=== PATIENT | female | born 2000 | race Caucasian/White ===

== ENCOUNTER → 2018-07-06 20:30 | Observation (INO) ==
[2018-07-06 18:19] LABS: Bilirubin,Urine Small (Negative); Blood,Urine Negative (Negative); Clarity,Urine Cloudy (Clear); Color,Urine Orange (Yellow); Glucose,Urine (UA) Normal (Normal); Ketones,Urine Trace mg/dL (Negative); Leukocyte Esterase,Urine Small (Negative); Nitrite,Urine Positive (Negative); PH,Urine 7.5 pH Units (5.0-8.0); Protein,Urine 30 mg/dL (Neg-Trace); Specific Gravity,Urine 1.023 (1.010-1.025); Urobilinogen,Urine Normal (Normal)
[2018-07-06 18:20] LABS: Bacteria,Urine Moderate per hpf (None-Few); RBC,Urine 0-3 per hpf (0-3); Squamous Epithelial Cell,Urine Many per lpf (None-Few); WBC,Urine 30-50 per hpf (0-3)
[2018-07-06 18:29] LABS: Amphetamine Screen,Urine Negative ng/mL (Cutoff=1000); Barbiturate Screen,Urine Negative ng/mL (Cutoff=200); Benzodiazepines Screen,Urine Negative ng/mL (Cutoff=200); Cannabinoid Screen,Urine Negative ng/mL (Cutoff = 50); Cocaine Screen,Urine Negative ng/mL (Cutoff= 300); Opiate Screen,Urine Negative ng/mL (Cutoff=300); Phencyclidine Screen,Urine Negative ng/mL (Cutoff=25)
--- NOTE | 2018-07-06 18:35 | OB/GYN Progress Note ---
Date of Encounter: 07/06/18 Time of Encounter: 18:34 Subjective - Subjective Interval history: 17 y/o @ 31+3 weeks presented to L&D reporting that she felt like passing out at work today. She does not report LOF or VB but reports back pain. NST reactive UA showed possible UTI PE elicited mild CVA tenderness Patient given Ceftriaxone 1g and sent home with PO Keflex ok for discharge Objective - Vital Signs Vital Signs: Intake and Output 07/06/18 07/06/18 07/06/18 07:59 15:59 23:59 Other: Weight 86.8 kg Patient Weight 07/06/18 23:59 Weight 86.8 kg - Labs Labs: Abnormal lab results Urine Color [place] (Yellow) A 07/06/18 18:00 Urine Clarity Cloudy (Clear) A 07/06/18 18:00 Urine Protein 30 mg/dL (Neg-Trace) H 07/06/18 18:00 Urine Ketones Trace mg/dL (Negative) H 07/06/18 18:00 Urine Nitrite Positive (Negative) A 07/06/18 18:00 Urine Bilirubin Small (Negative) H 07/06/18 18:00 Ur Leukocyte Esterase Small (Negative) H 07/06/18 18:00
[2018-07-06 18:48] LABS: Basophils % 0.2 %; Eosinophils # 0.1 K/mcL (0.0-0.6); Eosinophils % 0.5 %; Hematocrit 32.7 % (35.3-44.9); Hemoglobin 11.2 g/dL (11.5-15.4); Immature Granulocytes % 1.1 % (0-4); Lymphocytes # 0.8 K/mcL (0.6-4.6); Lymphocytes % 4.8 %; Mean Corpuscular HGB Conc 34.3 g/dL (31.6-35.5); Mean Corpuscular Hemoglobin 29.8 pg (28.0-33.3); Monocytes # 0.8 K/mcL (0.0-1.3); Monocytes % 4.6 %; Neutrophils # 15.1 K/mcL (1.6-8.9); Platelet Count 257 K/mcL (140-400); Red Blood Count 3.76 M/mcL (3.82-4.97); Red Cell Distribution Width 12.7 % (11.5-14.5); Segmented Neutrophils % 88.8 %
[2018-07-06 18:58] LABS: Calcium Phosphate Crystals,Ur Present; Hyaline Casts,Urine Few per lpf (None-Few); Mucus,Urine Many (Few); Renal Epithelial Cells,Urine Few per hpf (None-Few)
[2018-07-06 18:59] LABS: Oval Fat Bodies,Urine Present (Not Present); Triple Phosphate Crystal,Urine Present
[~2018-07-06 20:30] MED LIST: CefTRIAXone 1,000 MG VIAL IM ONE; Ringers Solution, Lactated 1,000 ML ONE; Ringers Solution, Lactated 500 ML IVC ONE; Ringers Solution, Lactated 500 ML IVC SCH
== END | disposition home or self-care (01) ==
LOC: 1NENULAB
PROVIDERS: ADMIT Advanced Practice Midwife; ATTEND Advanced Practice Midwife

== ENCOUNTER 2018-08-29 04:00 | Inpatient (IN) ==
[2018-08-29] MEDS ORDERED: *HR* Nalbuphine 10 MG/ML AMPUL IVP PRN (04:07)
[2018-08-29] MEDS ORDERED: Naloxone 0.4 MG/ML INJ IVP PRN ×2 (04:07→14:45)
[2018-08-29] MEDS ORDERED: Metoclopramide 10 MG/2 ML VIAL IVP PRN (04:07)
[2018-08-29] MEDS ORDERED: Famotidine 20 MG/2 ML VIAL IVP PRN (04:07)
[2018-08-29] MEDS ORDERED: miSOPROStol 25 MCG TABLET VG PRN (04:07)
[2018-08-29] MEDS ORDERED: Ringers Solution, Lactated 1,000 ML IVC SCH (04:15)
[2018-08-29 04:55] LABS: Basophils % 0.3 %; Eosinophils # 0.1 K/mcL (0.0-0.6); Eosinophils % 1.1 %; Hematocrit 31.7 % (35.3-44.9); Hemoglobin 10.7 g/dL (11.5-15.4); Immature Granulocytes % 1.7 % (0-4); Lymphocytes # 1.9 K/mcL (0.6-4.6); Lymphocytes % 16.3 %; Mean Corpuscular HGB Conc 33.8 g/dL (31.6-35.5); Mean Platelet Volume 9.4 fL (9.4-12.4); Monocytes # 0.7 K/mcL (0.0-1.3); Monocytes % 5.6 %; Neutrophils # 8.9 K/mcL (1.6-8.9); Platelet Count 285 K/mcL (140-400); Red Blood Count 3.82 M/mcL (3.82-4.97); Red Cell Distribution Width 13.4 % (11.5-14.5)
[2018-08-29 05:00] LABS: Amphetamine Screen,Urine Negative ng/mL (Cutoff=1000); Barbiturate Screen,Urine Negative ng/mL (Cutoff=200); Benzodiazepines Screen,Urine Negative ng/mL (Cutoff=200); Cannabinoid Screen,Urine Negative ng/mL (Cutoff = 50); Cocaine Screen,Urine Negative ng/mL (Cutoff= 300); Opiate Screen,Urine Negative ng/mL (Cutoff=300); Phencyclidine Screen,Urine Negative ng/mL (Cutoff=25)
[2018-08-29] MEDS: Ondansetron 4 MG/2 ML VIAL IVP PRN ×2 (05:11→20:09)
--- NOTE | 2018-08-29 05:34 | OB Labor Progress Note ---
Date of Encounter: 08/29/18 Time of Encounter: 05:32 Labor Progress Note - Subjective Subjective: Pt reports feeling contractions but states they are tolerable. - Cervix Cervix: 1/50/-2 - Heart Tones Heart Tones: FHR category I Accels 15x15 No decels - [place]: Contractions every 3-4 minutes - Interventions Interventions: SVE Rogers balloon placed and inflated with 60cc sterile water - Plan Physician notified: No Plan: Continue induction as planned per Dr. Avila Frequent position changes Anticipate
--- NOTE | 2018-08-29 06:03 | Anesthesia Evaluation PreOp ---
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 History: Denies Any Significant HX Other Medical History: Denies Any Significant HX Anesthesia History: No Prior Anesthetic Complications, Past Anesthesia (no family hx.) Alcohol Use: none Drug use: none Medications and Allergies Vit/Iron Fumarate/FA [ Tablet] 1 each PO DAILY #90 tablet 07/03/17 [Rx] Famotidine [Pepcid] 20 mg PO DAILY 07/06/18 [History] Allergy/AdvReac Type Severity Reaction Status Date / Time No Known Allergies Allergy Verified 07/02/18 09:41 Anesthesia Results - Labs 08/29/18 04:20 Anesthesia Exam - HEENT Pupil (Motor): Pupils equal Mallampati: II Teeth: Normal Oral Opening: Greater than 3 - CRUSHER SCREEN REPAIRER LOC: Oriented CRUSHER SCREEN REPAIRER Motor: Normal RUE, Normal LUE, Normal RLE, Normal LLE, Normal Face CRUSHER SCREEN REPAIRER Sensory: Normal: RUE, LUE, RLE, LLE, Face - Cardiac Rhythm: Regular Murmur: None - Pulmonary Breath Sounds: bilateral Clear Respiratory Effort: Symmetrical Anesthesia Assess/Plan ASA Score: 2 Level of consciousness: Cooperative, Oriented Monitoring Plan: Standard Monitors Recovery Plan: PACU
[2018-08-29] MEDS ORDERED: EPHEDrine 50 MG/ML VIAL IVP PRN ×2 (06:06→14:45)
[2018-08-29] MEDS ORDERED: Epidural Premix (fent/bupiv) 110 ML EP SCH ×2 (06:15→14:45)
[2018-08-29] MEDS ORDERED: *HR* FentaNYL (PF) 100 MCG/2 ML VIAL EP ONE (14:45)
[2018-08-29] MEDS ORDERED: *HR* Ropivacaine/PF 0.2% 20 ML VIAL EP ONE (14:45)
[2018-08-29] MEDS ORDERED: Ondansetron 4 MG/2 ML VIAL IVP PRN (14:45)
[2018-08-29] MEDS ORDERED: *HR* FentaNYL (PF) 100 MCG/2 ML VIAL ONE (14:50)
[2018-08-29] MEDS ORDERED: Lidocaine -MPF 1% 5 ML AMPUL ONE (14:51)
[2018-08-29] MEDS ORDERED: *HR* Ropivacaine/PF 0.2% 20 ML VIAL ONE (14:51)
--- NOTE | 2018-08-29 15:34 | Anesthesia Procedures ---
Addendum entered and electronically signed by Vitaly Casarez CRNA 08/30/18 01:46: Delivery date: 08/30/18 Deivery time: 0140 Original Note: Date of Encounter: 08/29/18 Time of Encounter: 15:00 Procedures: Anesthesia - Epidural/Spinal Patient ID/Chart reviewed: Yes Patient examined: Yes OB Eval: Gestational age: 39 OB Eval: : 1 OB Eval: Hx Para: 0 OB Eval: Dilated at (cm): 5 OB Eval: Contractions: Non-stressed pattern Consent Obtained: Yes Supplemental Oxygen: None/Room Air Site Prep: Aseptic Technique, Sterile prep and drape, Povidone-Iodine 1% Patient position: upright Local Anesthetic: Lidocaine 1% Amount of Local Anesthetic used: 3 Touhy Needle Gauge: 18 Touhy Needle Depth (cm): 5 Catheter Depth at Skin (cm): 15 Test Dose (1.5% Lido + Epi): Volume given (mls): 3 Test Dose Result: Negative Loading Dose: Fentanyl (mcg): 100 Loading Dose: Other: Ropivicaine 0.2% 8ml Loading Dose Administered: Thru Catheter Infusion Med: 0.125% Bupivacaine w/ 2 mcg/ml Fentanyl Infusion Rate (mls/hr): [address]: Tegaderm, Tape Interspace Used: L3-L4 Loss of Resistance (CANDELARIO): Yes Blood: No Procedure: ZACH placed 1st pass in upright position without any immediate noted complications. VSS and FHT stable throughout. Vitals + FHT's: 1500 BP 118/65 P 148 R 18 1524 98/53 P 136 R 16
[2018-08-29] MEDS ORDERED: Oxytocin 20 units/ LR 1000 mL 20 UNIT/1,000 ML BAG IVC SCH (16:30)
--- NOTE | 2018-08-29 17:44 | OB/GYN History & Physical ---
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 Hernández is a 17 year old female who presents for scheduled induction of labor at 39w1d. She is and had care with Dr. Sanchez. course has been uncomplicated. She is varicella and rubella nonimmune. She admits to good movement and contractions. She denies vaginal bleeding or spontaneous rupture of membranes. She denies nausea, vomiting, fever, chills, dizziness, vision changes, chest pain, shortness of breath, RUQ pain, dysuria or calf pain. She has a past medical history of anxiety, depression and previous spontaneous in 2017. She has NKDA. 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 Past Med Surg Social Fam HX - Past Medical History Source: patient Medical history: no medical history Psychiatric history: anxiety, depression - Past Surgical History Surgical History: non-contributory - Social History Smoking Status: Never smoker Smokeless Tobacco Status: No Alcohol use: none Drug use: none Occupational status: employed Current living situation: Home - Independent Activity Level: Independent ambulation Recent Out of Country Travel Within the Last 8 Weeks: No Exposure or Possible Exposure to Illness During Travel: No - Family History Father Family Member Ethnicity: Non- Living Status: Cause of : Complications from diabetes mellitus Hx Family Cardiac Disorders: No Hx Family Respiratory Disorders: No Hx Family Cancer: No Hx Family GI Disorders: No Hx Family Genitourinary Disorders: No Hx Family Endocrine Disorder: No Hx Family Musculoskeletal Disorders: No Hx Family Neuromuscular Disorders: No Hx Family Neurologic Disorders: No Hx Family HEENT Disorders: No Hx Family Autoimmune Disorders: No Hx Family Reproductive Disorders: No Hx Family Psychosocial Disorders: No Hx Family Medical Disorders: No Obstetrical History - Pregnancies : 2 Para: 0 Term: 0 : 0 Ab's: 1 Livin - History/Complications History/Complications: First resulted in spontaneous Medications and Allergies Vit/Iron Fumarate/FA [ Tablet] 1 each PO DAILY #90 tablet 07/03/17 [Rx] Famotidine [Pepcid] 20 mg PO DAILY 07/06/18 [History] Allergy/AdvReac Type Severity Reaction Status Date / Time No Known Allergies Allergy Verified 07/02/18 09:41 Review of System OB All systems PM: reviewed and no additional remarkable complaints except as stated Exam - Constitutional Constitutional: well developed, well nourished, no acute distress, average body habitus - HEENT HEENT: Normocephaly, Mucus Membranes Moist - Neck Neck exam: full ROM, supple, trachea midline - Lungs Respiratory exam: CTAB - Cardiovascular Cardiovascular exam: RRR, +S1, +S2 - Abdomen Abdomen: Present: bowel sounds normal, gravid, non tender - Extremities Extremities exam: normal capillary refill, pedal edema, radial pulses palpable and symmetrical Deep Tendon Reflex Grade: 2+ Normal - Vagina Vagina: Present: normal moisture - Cervix Dilation: 6 Effacement: 90 Station: -2 - Uterus Uterus exam: Present: normal size, normal contour Results Result Diagrams: 08/29/18 04:20 Abnormal lab results WBC 11.9 K/mcL (4.3-11.1) H 08/29/18 04:20 Hgb 10.7 g/dL (11.5-15.4) L 08/29/18 04:20 Hct 31.7 % (35.3-44.9) L 08/29/18 04:20 All other labs normal. - VTE Reasons for not Prescribing Prophylaxis: Treatment not Indicated - Low risk for VTE
[2018-08-29] MEDS ORDERED: Acetaminophen 325 MG TABLET PO PRN (19:56)
--- NOTE | 2018-08-30 | Anesthesia Progress Note ---
Date of Encounter: 08/29/18 Time of Encounter: 23:50 Anesthesia Note - Note Note: 08/29/18 23:56 Called to patient bedside with breakthrough pain with contractions. BP 88/50 P 135. Patient bolus limited due to low BP. Ropivicaine 0.2% 4ml administered. VSS
[2018-08-30] MEDS ORDERED: Ampicillin 2 GM in 0.9 % Sodium Chloride Mini Bag 100 ML IVPB ONE (00:01)
--- NOTE | 2018-08-30 02:11 | OB/GYN Procedure Note ---
Delivery - Delivery Date: 08/30/18 Provider: Preet Avila Intrapartum events: febrile- temp >100.3 Delivery induction: AROM, oxytocin, lopez Anesthesia: epidural Quantitated Blood Loss: 350 - Infant (s) Infant A Delivery Date: 08/30/18 Infant Delivery Time: 01:40 Presentation: vertex Position: SELVIN Gender: Female Viability: Viable Weight Gram: 3.035 kg at 1 minute: 8 at 5 mins: 9 Shoulder Dystocia: not encountered Specimens collected: cord blood Placenta: spontaneous Cord: 3 umbilical vessels - Repair Laceration Description: Periurethral - Complications Delivery complications: none - Disposition Mom disposition: stable in LDR [place] disposition: stable in LDR - Comments Comments: Pt is s/p of liveborn female without difficulty. Spontaneous delivery of normal placenta with 3 vc. Small rt periurethral tear repaired with 3-0 Vicryl. Mother and infant recovered in LDR>
[2018-08-30] MEDS ORDERED: Rho Immune Globulin 1,500 UNIT SYRINGE IM PRN (02:48)
[2018-08-30] MEDS ORDERED: Oxytocin 20 units/ LR 1000 mL 20 UNIT/1,000 ML BAG IVC SCH (02:48)
[2018-08-30] MEDS ORDERED: Acetaminophen 325 MG TABLET PO PRN (02:48)
[2018-08-30] MEDS ORDERED: Measles/Mumps/Rubella Vacc 0.5 ML VIAL SQ PRN (02:48)
[2018-08-30] MEDS ORDERED: Ampicillin 1,000 MG in 0.9 % Sodium Chloride Mini Bag 100 ML IVPB SCH (04:00)
[2018-08-30 06:09] LABS: Basophils % 0.2 %; Hematocrit 26.2 % (35.3-44.9); Immature Granulocytes % 0.6 % (0-4); Lymphocytes % 4.6 %; Mean Corpuscular HGB Conc 33.2 g/dL (31.6-35.5); Mean Corpuscular Hemoglobin 28.1 pg (28.0-33.3); Mean Corpuscular Volume 84.5 fL (83.0-100.0); Mean Platelet Volume 9.5 fL (9.4-12.4); Monocytes % 6.5 %; Neutrophils # 19.7 K/mcL (1.6-8.9); Platelet Count 224 K/mcL (140-400); Red Cell Distribution Width 13.7 % (11.5-14.5); Segmented Neutrophils % 88.1 %
[2018-08-30 06:21] LABS: Hemoglobin 8.7 g/dL (11.5-15.4); Monocytes # 1.5 K/mcL (0.0-1.3)
[2018-08-30] MEDS: Prenatal Vit/FA 1 EACH TABLET PO SCH (08:56)
[2018-08-30] MEDS: Ibuprofen 600 MG TABLET PO PRN ×3 (08:56→22:46)
[2018-08-30 21:40] VITALS: BP 104/72
[2018-08-31] MEDS: Ibuprofen 600 MG TABLET PO PRN (08:50)
[2018-08-31] MEDS: Prenatal Vit/FA 1 EACH TABLET PO SCH (08:50)
--- NOTE | 2018-08-31 09:43 | Discharge Summary ---
Date of Encounter: 08/31/18 Time of Encounter: 09:40 - Discharge Diagnosis (1) Vaginal delivery Priority: Primary Status: Acute Comments: Patient doing well day one . She is voiding without difficulty, tolerating regular diet, pain well-controlled. Anticipate discharge home today. Follow up in 4 [address] as scheduled with Dr. Avila (2) anemia Priority: Secondary Status: Acute Comments: Patient is asymptomatic with Hgb 8.7 yesterday. She denies dizziness with ambulation. Mucous membranes pink. Redraw CBC this AM Discharge home with bid iron. (3) Encounter for initial prescription of injectable contraceptive Priority: Secondary Status: Acute Comments: Patient requesting contraception prior to discharge. Depo Provera will be given today before discharge. - Discharge Medications Prescriptions: Ibuprofen [Motrin] 600 mg PO Q6HR PRN #60 tablet PRN Reason: cramping Docusate [Colace] 100 mg PO BID #60 capsule Ferrous Sulfate 325 mg PO BID #60 tablet Home Medications: Vit/Iron Fumarate/FA [ Tablet] 1 each PO DAILY #90 tablet 07/03/17 [Rx] Famotidine [Pepcid] 20 mg PO DAILY 07/06/18 [History] Acetaminophen [Tylenol] 650 mg PO Q6HR PRN tablet 08/31/18 [Rx] Docusate [Colace] 100 mg PO BID #60 capsule 08/31/18 [Rx] Ferrous Sulfate 325 mg PO BID #60 tablet 08/31/18 [Rx] Ibuprofen [Motrin] 600 mg PO Q6HR PRN #60 tablet 08/31/18 [Rx] Allergies/Adverse Reactions: Allergy/AdvReac Type Severity Reaction Status Date / Time No Known Allergies Allergy Verified 07/02/18 09:41 Data Procedures and tests throughout hospitalization: Laboratory Tests 08/29/18 08/29/18 08/29/18 04:20 04:20 04:20 WBC 11.9 H RBC 3.82 Hgb 10.7 L Hct 31.7 L MCV 83.0 MCH 28.0 MCHC 33.8 RDW 13.4 Plt Count 285 MPV 9.4 Immature Gran % 1.7 Seg Neutrophils % 75.0 Lymphocytes % 16.3 Monocytes % 5.6 Eosinophils % 1.1 Basophils % 0.3 Neutrophils # 8.9 Lymphocytes # 1.9 Monocytes # 0.7 Eosinophils # 0.1 Basophils # 0.0 Urine Opiates Screen Negative Ur Barbiturates Screen Negative Ur Phencyclidine Scrn Negative Ur Amphetamines Screen Negative U Benzodiazepines Scrn Negative Urine Cocaine Screen Negative U Marijuana (THC) Screen Negative Ur Drug Screen Interp See Below Hep Bs Antigen Nonreactive 08/30/18 05:29 WBC 22.3 H D RBC 3.10 L Hgb 8.7 L D Hct 26.2 L MCV 84.5 MCH 28.1 MCHC 33.2 RDW 13.7 Plt Count 224 MPV 9.5 Immature Gran % 0.6 Seg Neutrophils % 88.1 Lymphocytes % 4.6 Monocytes % 6.5 Eosinophils % 0.0 Basophils % 0.2 Neutrophils # 19.7 H Lymphocytes # 1.0 Monocytes # 1.5 H Eosinophils # 0.0 Basophils # 0.0 Urine Opiates Screen Ur Barbiturates Screen Ur Phencyclidine Scrn Ur Amphetamines Screen U Benzodiazepines Scrn Urine Cocaine Screen U Marijuana (THC) Screen Ur Drug Screen Interp Hep Bs Antigen Date of admission: 08/29/18 04:05 Primary care physician: Luigi Benson MD Consults: 08/30/18 02:48 Consult to Freight Inspector [CONS] Routine Comment: Vaginal delivery, consult needed Consult to Accountant Assistant [CONS] Routine Reason for SW Consult: teen Discharging clinician: Pauline Bobby Anticipated date of discharge: 08/31/18 - Patient Status Disposition: Home, Self-Care Condition: Good Functional capacity at discharge: independent ambulation Overall status at discharge: patient is progressing back to baseline - Discharge Instructions Follow Up With: Luigi Benson MD [Primary Care Provider] - Preet Avila MD [Partnered Physician] - - Diet and Activity Activity: resume usual activities as tolerated Diet: regular diet Hospital Course Reason for admission: induction of labor Delivery: Episiotomy: none Laceration: other (periurethral) Other procedures: none complications: none Discharge diagnosis: IUP at term delivered [place] baby: female Hospital course: Patient doing well day one . Voiding without difficulty, bleeding light, tolerating regular diet, pain well controlled. Asymptomatic with Hgb 8.7 but will redraw CBC this morning. Anticipate discharge home today with follow up in 4 weeks. Patient request Depo Provera prior to discharge. Delivery Date: 08/30/18 Provider: Preet Avila Intrapartum events: febrile- temp >100.3 Delivery induction: AROM, oxytocin, lopez Anesthesia: epidural Quantitated Blood Loss: 350 - (s) A Infant Delivery Date: 08/30/18 Infant Delivery Time: 01:40 Presentation: vertex Position: SELVIN Gender: Female Viability: Viable Weight Gram: 3.035 kg at 1 minute: 8 at 5 mins: 9 Shoulder Dystocia: not encountered Specimens collected: cord blood Placenta: spontaneous Cord: 3 umbilical vessels - Repair Laceration Description: Periurethral - Complications Delivery complications: none - Disposition Mom disposition: stable in LDR [place] disposition: stable in LDR - Comments Comments: Pt is s/p of liveborn female without difficulty. Spontaneous delivery of normal placenta with 3 vc. Small rt periurethral tear repaired with 3-0 Vicryl. Mother and recovered in LDR> Time Attestation: Total time spent providing and/or coordinating discharge services: Time Spent: Less than 30 minutes Exam - Constitutional Vitals: Temp Pulse Resp BP Pulse Ox 98.0 F 85 16 104/72 98 08/30/18 21:00 08/30/18 21:00 08/30/18 21:00 08/30/18 21:00 08/30/18 21:00 General appearance IM: A&O X 3, pleasant, no acute distress, answers questions appropriately - Respiratory Respiratory exam: Present: CTAB - Cardiovascular Cardiovascular exam IM: Present: RRR, +S1, +S2 - GI/Abdominal GI/Abdominal exam IM: normal bowel sounds, soft - Rectal Rectal exam: deferred - Uterine Tone: Firm Uterus Position: 1 Finger Below Umbilicus - Extremities Exam Extremities exam IM: Present: full ROM, normal capillary refill, normal i nspection, pedal edema - Neurological Exam Neurological exam: alert, normal gait, oriented X3
[2018-08-31 10:18] LABS: Basophils % 0.3 %; Eosinophils # 0.2 K/mcL (0.0-0.6); Eosinophils % 1.7 %; Hematocrit 28.6 % (35.3-44.9); Hemoglobin 9.5 g/dL (11.5-15.4); Immature Granulocytes % 2.2 % (0-4); Lymphocytes # 1.9 K/mcL (0.6-4.6); Mean Corpuscular HGB Conc 33.2 g/dL (31.6-35.5); Mean Corpuscular Hemoglobin 28.6 pg (28.0-33.3); Mean Corpuscular Volume 86.1 fL (83.0-100.0); Mean Platelet Volume 9.3 fL (9.4-12.4); Monocytes # 0.7 K/mcL (0.0-1.3); Neutrophils # 10.6 K/mcL (1.6-8.9); Platelet Count 253 K/mcL (140-400); Red Blood Count 3.32 M/mcL (3.82-4.97); Red Cell Distribution Width 13.7 % (11.5-14.5); Segmented Neutrophils % 76.8 %
== END 2018-08-31 15:31 | disposition home or self-care (01) | DRG 560 ==
LOC: 1NENULAB 04:05 → 1NENUOBS 08-30 04:11
PROVIDERS: ADMIT Advanced Practice Midwife; ATTEND Advanced Practice Midwife